=== PATIENT | female | born 1945 | race Caucasian/White ===

== ENCOUNTER → 2017-08-10 | Outpatient (CLI) | payer OTHER ==
[~2017-08-10] MED LIST: HYDR-2758 PO; IBUP-1027 PO; LEVO125T5 PO; LISI-334 PO; LISI40TA PO; SIMV80TA3 PO
--- NOTE | 2017-08-10 19:06 | PAIN ---
DATE OF SERVICE: 08/10/2017 PROGRESS NOTE FOR PAIN CLINIC: DIAGNOSES: Lumbar radiculopathy with lumbar degenerative disk disease, lumbar spinal stenosis. HISTORY OF PRESENT ILLNESS: The patient is a 72-year-old female who returns followup status post lumbar epidural steroid injection x 2, last seen on 04/02/2015. The patient did very well for almost just over 2 years. The patient reports she was doing very well until about 2 months ago, the pain returned when she was stepping over a bucket lost her balance and fell on her left side. The patient reports she has had pain across the low back since that time radiating to the bilateral lower extremities, slightly worse on the left than the right, but present bilaterally across low back in the posterior gluteus and lateral thigh on the left and into the anterior thigh on the right and anterior thigh on the left. The patient reports into the lower leg and the medial aspect of the legs bilaterally and aching, sharp at times radiating shooting sometimes it is cramping and stabbing and burning pain as well. The patient reports it as 9 on a scale 10 as worst, 7 on average, and is 4 at least and is 7 today. The patient reports no new motor or sensory deficits, no new changes has awaken her from sleep about every 4 hours, specially when she lays on her left side, but pain again bilaterally in the low back radiating to bilateral lower extremities in a L3-L4 and L4-L5 dermatomal distribution. The patient's old chart was reviewed. She does have an MRI scan from 02/2015 showing degenerative changes, most notable at L3-L4 and L5-S1 as well as disk osteophyte complex at L4-L5 with mild to moderate bilateral foraminal narrowing. The patient reports it is worse with standing, walking, changing positions, sitting for more than about 10-15 minutes, better with lying down, but again weaning on her left side causes difficulty with sleeping and increase in pain. The patient reports no other findings at this time. PHYSICAL EXAMINATION: VITAL SIGNS: The patient's blood pressure 156/80, pulse 73, respirations 18, temperature 98.2 degrees Fahrenheit. Height is 5 feet 6 inches, weight is 206 pounds. GENERAL: The patient is awake, alert, oriented, appropriate, very pleasant demeanor. HEENT: Head shows normocephalic, atraumatic. Extraocular movements are intact, symmetrical. Oral cavity, mucous membranes are moist and pink. Dentition is intact. NECK: Supple without palpable lymphadenopathy noted. Swallow reflex symmetrical. CHEST: Shows normal with inspection. Breath sounds clear to auscultation bilaterally. HEART: Shows S1, S2 clear. No murmurs auscultated. ABDOMEN: Soft, nontender, nondistended. No palpable organomegaly. No rebound or guarding demonstrated. BACK: Shows spine grossly midline. Normal appearing thoracic kyphosis and lumbar lordotic curvature. No previous bruises, lesions, rashes or scars are noted. Lumbar paraspinous muscle shows symmetrical inspection with palpation shows some moderate tenderness throughout the middle and lower distribution of paraspinous muscles diffusely bilaterally, but without radiation. No trigger points. It shows no tenderness over the sacral or sacroiliac regions. It shows good rotational motion of lumbar spine, both laterally as well as extension and flexion without significant difficulty or pain reported. LOWER EXTREMITIES: Show deep tendon reflexes 2+ in the patellar, 1+ tendo-calcaneus tendons are equal. Motor exam is 5/5 with dorsiflexion, extension, quadriceps and hamstring flexion is 4/5 on the left and 5/5 on the right. Peripheral pulses are 1+ posterior tibial. No peripheral edema is noted. No clubbing and no cyanosis. The patient has a mildly positive straight leg raise on the left side at about 45 degrees, decreased with knee flexion, right side is negative. Options were discussed with the patient. The patient's old chart was reviewed as her current medication regimen and updated. Current review of systems updated today as well and we will preauthorize the patient for a lumbar epidural steroid injection. She did very well with these in the past with some radicular pain returning again down L3-L4 and L4-L5 dermatomal distribution in both the right and left lower extremity slightly worse on the left at this time. The patient will try Medrol Dosepak. In the meantime, a new prescription with instructions, side effects to be aware of discussed. She will follow up in approximately one week. We will plan on lumbar epidural steroid injection at that time. DINESH NAPLOES MD DR: JESSICA/samantha JOB#: [id number] / [id number]
== END | disposition home or self-care (01) ==
LOC: PNCL 08:49
PROVIDERS: ATTEND Anesthesiology
DX: M51.16 Intervertebral disc disorders with radiculopathy, lumbar region (principal); M48.061 Spinal stenosis, lumbar region without neurogenic claudication
CPT/HCPCS: G0463

== ENCOUNTER → 2017-08-24 | Outpatient (CLI) | payer OTHER ==
[~2017-08-24] MED LIST changes: +IOHEXOL 180 MG/ML 10 ML VIAL. ONE; +methylPREDNISolone ACETATE 40 MG/ML VIAL. ONE; +methylPREDNISolone ACETATE 80 MG/ML VIAL. ONE
--- NOTE | 2017-08-24 19:28 | PAIN ---
DATE OF SERVICE: 08/24/2017 DIAGNOSES: Lumbar radiculopathy with lumbar degenerative disk disease, lumbar spinal stenosis. HISTORY OF PRESENT ILLNESS: The patient is a 72-year-old female who returns for followup status post initial evaluation and preauthorization. The patient has obtained this now and would like to proceed for lumbar epidural steroid injection today. The patient reports still significant pain in the low back and into the left primarily over the right lower extremity, but present bilaterally. The patient reports pain in the posterior gluteus, posterolateral thigh, lateral anterior thigh, medial thigh on the left side greater than the right, but also in the medial thigh and calf on the right side. The patient reports the Medrol Dosepak, which we had given her on her last visit, helped significantly about 60% and is still helping. The patient reports no new motor or sensory deficits, no new bowel or bladder incontinence. The patient reports pain is a 6 on a scale 10 at its worst, 5 on average, 4 at its least and is a 4 today. The patient reports an aching, tight, dull, but on and off now, much better after the Medrol Dosepak was completed. The patient reports she is having difficulty with walking, standing, more pain with these maneuvers, also with lying down. It has been waking her from sleep, but she sleeps about 6-8 hours at a time. If it does awaken her, she can reposition and/or take pain medication to get back to sleep. The patient reports no new changes. No new bowel or bladder incontinence or other complaints. PHYSICAL EXAMINATION: VITAL SIGNS: The patient's blood pressure 157/96, pulse 69, respirations 18, temperature 97.9 degrees Fahrenheit, height is 5 feet 6 inches, weight is 206 pounds. GENERAL: The patient is awake, alert, oriented, appropriate, very pleasant demeanor. HEENT: Head shows normocephalic, atraumatic. Extraocular muscles are intact and symmetrical. Oral cavity: Mucous membranes moist and pink. Dentition is intact. NECK: Shows anterior throat supple without palpable lymphadenopathy noted. Swallow reflex is symmetrical. CHEST: Normal with inspection. Breath sounds are clear to auscultation bilaterally. HEART: Shows S1, S2 clear. No murmurs auscultated. ABDOMEN: Soft, nontender, nondistended. No palpable organomegaly noted. No rebound or guarding demonstrated. BACK: Shows spine grossly in the midline, normal appearing thoracic kyphosis, lumbar lordotic curvature. Lumbar paraspinous muscle shows symmetrical on inspection, with palpation shows some [id number] tenderness in the low lumbar distribution, slightly more on the left than the right on evaluation today, but without radiation, without trigger points. EXTREMITIES: Lower extremities show deep tendon reflexes 2+ in the patellar, 1+ tendo calcaneus tendons. Motor exam is approximately 4 on a scale of 5 with left dorsiflexion, extension and quadriceps, and 5/5 on the right. PLAN: Options were discussed with the patient. The patient's old chart was reviewed as her current medication regimen updated. Current review of systems updated today as well. We will proceed with a lumbar epidural steroid injection today with fluoroscopic guidance. Risks were again discussed including, but not limited to bleeding, infection, possibility of epidural hematoma, subsequent neurological compromise, dural puncture headaches, spinal cord and/or nerve damage, side effects of steroid medication and poor results regarding pain control. The patient understands and wished to proceed. The patient will return to clinic in approximately 2 weeks for followup, was counseled on return appointment, activity level and side effects to be aware of. DIAGNOSES: Lumbar radiculopathy with lumbar spinal stenosis, lumbar degenerative disk disease. PROCEDURES: Lumbar epidural steroid injection translaminar approach L4-L5 bilaterally using C-arm fluoroscopic guidance under sterile prep and drape using local anesthetic. MEDICATION INJECTED: A total of 120 mg Depo-Medrol plus 10 mL preservative-free normal saline and 2 mL Isovue for contrast. CONDITION AT DISCHARGE: Stable. The patient tolerated the procedure well, had no complications. DINESH NAPOLES MD DR: JESSICA/samnatha JOB#: [id number] / [id number]
== END | disposition home or self-care (01) ==
LOC: PNCL 08:45
PROVIDERS: ATTEND Anesthesiology
DX: M51.16 Intervertebral disc disorders with radiculopathy, lumbar region (principal); M48.061 Spinal stenosis, lumbar region without neurogenic claudication
CPT/HCPCS: 62323; J1030; J1040

== ENCOUNTER → 2017-09-07 | Outpatient (CLI) | payer OTHER | END | disposition home or self-care (01) | LOC: PNCL 09:49 | DX: M51.16 Intervertebral disc disorders with radiculopathy, lumbar region (principal); M48.061 Spinal stenosis, lumbar region without neurogenic claudication | CPT/HCPCS: G0463 ==

== ENCOUNTER → 2017-09-25 | Outpatient (CLI) | payer OTHER ==
[~2017-09-25] MED LIST changes: -HYDR-2758 PO; -IBUP-1027 PO; +IOHEXOL 180 MG/ML 10 ML VIAL.; -IOHEXOL 180 MG/ML 10 ML VIAL. ONE; -LEVO125T5 PO; -LISI-334 PO; -LISI40TA PO; -SIMV80TA3 PO; +methylPREDNISolone ACETATE 40 MG/ML VIAL.; -methylPREDNISolone ACETATE 40 MG/ML VIAL. ONE; +methylPREDNISolone ACETATE 80 MG/ML VIAL.; -methylPREDNISolone ACETATE 80 MG/ML VIAL. ONE
== END | disposition home or self-care (01) ==
LOC: PNCL 13:41
DX: M51.16 Intervertebral disc disorders with radiculopathy, lumbar region (principal); M48.061 Spinal stenosis, lumbar region without neurogenic claudication
CPT/HCPCS: 62323; J1030; J1040

== ENCOUNTER → 2017-10-13 | Outpatient (CLI) | payer OTHER | END | disposition home or self-care (01) | LOC: KCIC MRI 14:15 | DX: M47.896 Other spondylosis, lumbar region (principal); M48.061 Spinal stenosis, lumbar region without neurogenic claudication; M43.16 Spondylolisthesis, lumbar region; M25.78 Osteophyte, vertebrae; M51.47 Schmorl's nodes, lumbosacral region | CPT/HCPCS: 72148 ==

== ENCOUNTER → 2017-10-24 | Outpatient (CLI) | payer OTHER | END | disposition home or self-care (01) | LOC: KCIC 15:38 | DX: M43.16 Spondylolisthesis, lumbar region (principal); M47.897 Other spondylosis, lumbosacral region; M48.07 Spinal stenosis, lumbosacral region; M12.88 Other specific arthropathies, not elsewhere classified, other specified site | CPT/HCPCS: 72100 ==

== ENCOUNTER → 2017-11-20 | Outpatient (CLI) | payer OTHER ==
[2017-11-21 00:14] LABS: MRSA BY PCR Negative (Negative)
== END | disposition home or self-care (01) ==
LOC: SURGPAT 14:12
DX: Z01.818 Encounter for other preprocedural examination (principal); M43.16 Spondylolisthesis, lumbar region; M48.061 Spinal stenosis, lumbar region without neurogenic claudication; M51.16 Intervertebral disc disorders with radiculopathy, lumbar region
CPT/HCPCS: 87641; 93005

== ENCOUNTER → 2018-02-26 | Outpatient (CLI) | payer OTHER | END | disposition home or self-care (01) | LOC: KCIC 10:36 | DX: M12.88 Other specific arthropathies, not elsewhere classified, other specified site (principal) | CPT/HCPCS: 72100 ==